=== PATIENT | male | born 1945 | race Caucasian/White ===

== ENCOUNTER 2016-12-22 10:24 | Emergency (ER) ==
[2016-12-22] MEDS ORDERED: MORPHINE 2 MG/ML SYRINGE IVP STA (10:27)
[2016-12-22] MEDS ORDERED: ZOFRAN 4 MG/2 ML IVP STA (10:27)
[2016-12-22] MEDS ORDERED: ASPIRIN CHEWABLE PO STA (10:27)
[2016-12-22 10:35] LABS: BASOPHILS % (AUTO) 0.3 % (0.0-3.0); EOSINOPHILS # (AUTO) 0.1 K/ul (0.0-0.7); HEMATOCRIT 45.6 % (42.0-52.0); HEMOGLOBIN 15.6 g/dl (14.0-18.0); IMMATURE GRANULOCYTE % (AUTO) 0.5 % (0.0-5.0); LYMPHOCYTES # (AUTO) 1.7 K/uL (0.60-3.4); LYMPHOCYTES % (AUTO) 12.7 (10.0-50.0); MEAN CORPUSCULAR HEMOGLOBIN 32.8 pg (27.0-31.0); MEAN CORPUSCULAR HGB CONC 34.2 (31.8-35.4); MEAN CORPUSCULAR VOLUME 95.8 fl (80.0-94.0); MONOCYTES # (AUTO) 0.8 K/uL (0.4-2.0); NEUTROPHILS # (AUTO) 10.8 K/ul (2.0-6.9); NEUTROPHILS % (AUTO) 79.5; PLATELET COUNT 226 10^3/uL (140-440); RED BLOOD COUNT 4.76 10^6/ul (4.70-6.10); WHITE BLOOD COUNT 13.63 K/ul (4.2-10.2)
[2016-12-22 10:42] VITALS: BP 175/91; TEMP 98.9; BMI 25.9
--- NOTE | 2016-12-22 10:46 | ED.PDOC ---
General ED Provider: Dr. HUEY MALLOY Chief Complaint: Chest Pain Stated Complaint: Been hurting in the middle of the chest, has some shortness of breath. pain radiates to throat, not getting better,. patient also has some sinus drainage, coughing. Time Seen by Physician: 10:44 Mode of Arrival: Walk-In Information Source: Patient Primary Care Provider: SHERIF POLLACK Nursing and Triage Documentation Reviewed and Agree: Yes Cardiovascular Complaint Exam - Chest Pain Complaint/Exam Onset: Gradual Symptoms Are: Still present Timing: Constant Initial Severity: Moderate Current Severity: Moderate Location: Reports: Midsternal Pain Radiates: Reports: Jaw Character: Reports: Aching, Tightness Aggravating: Reports: None Alleviating: Reports: None Associated Signs and Symptoms: Reports: Diaphoresis, Cough, Short of air. Denies: Nausea, Vomiting, Fever, Palpitations, Hemoptysis, Back pain, Abdominal pain, Dizziness, Calf pain, Calf swelling Related History: Reports: Similar episode Related Surgical History: Reports: None History of Healthcare-Acquired Pneumonia: Reports: No AMI/ACS Risk Factors: Reports: Hypertension TAD Risk Factors: Reports: None Pulmonary Embolism Risk Factors: Reports: None Prior Care for this Complaint: No Recent Stress Test: No Recent Echo/LV Function: No JVD Present: No Subcutaneous Emphysema Present: No Diminshed Breath Sounds: No Reproducible Chest Wall Pain: No Bilateral Pulses Present: No Unequal Pulses Noted: No If Risk Factors for AMI/ACS Consider: EKG, Cardiac Enzymes, Serial Studies, Oxygen, Aspirin Differential Diagnoses: ACS, Stable Angina Quality Indicators For Acute PA or Cardiac Chest Pain: EKG in 10min., ASA if indicated Review of Systems - Review Of Systems Constitutional: Reports: No symptoms Eyes: Reports: No symptoms Ears, Nose, Mouth, Throat: Reports: Nose discharge Respiratory: Reports: Cough Cardiac: Reports: Chest pain GI: Reports: No symptoms : Reports: No symptoms Musculoskeletal: Reports: No symptoms Skin: Reports: No symptoms Neurological: Reports: No symptoms Endocrine: Reports: No symptoms Hematologic/Lymphatic: Reports: No symptoms All Other Systems: Reviewed and Negative Past Medical History - Past Medical History Previously Healthy: Yes Endocrine: Reports: Dyslipidemia Cardiovascular: Reports: Hypertension Respiratory: Reports: None Hematological: Reports: None Gastrointestinal: Reports: None Genitourinary: Reports: None Neuro/Psych: Reports: None Musculoskeletal: Reports: None Cancer: Reports: None - Surgical History General Surgical History: Reports: Other (CE[facility] DR BARAJAS) - Family History Family History: Reports: None - Social History Smoking Status: Current every day smoker, Light tobacco smoker Hx Substance Use: No Alcohol Screening: Heavy Physical Exam - Physical Exam Appearance: Ill-appearing, Well-nourished Eyes: EOMI ENT: Ears normal, Nose normal, Oropharynx normal Respiratory: Crackles Cardiovascular: RRR, Pulses normal, No rub, No murmur GI/: Soft, Nontender, No masses, Bowel sounds normal, No Organomegaly Musculoskeletal: Normal strength, ROM intact, No edema, No calf tenderness Skin: Warm, Dry, Normal color Neurological: Sensation intact, Motor intact, Reflexes intact, Cranial nerves intact, Alert, Oriented Psychiatric: Affect appropriate, Mood appropriate Physician Notification - Case Discussed Time of Notification: 10:51 (Dr Rayshawn Thornton er.) Critical Care Note - Critical Care Note Total Time (mins): 30 Course - Course Hematology/Chemistry: 12/22/16 10:30 Orders, Labs, Meds: Lab Review 12/22/16 10:30 WBC 13.63 H RBC 4.76 Hgb 15.6 Hct 45.6 MCV 95.8 H MCH 32.8 H MCHC 34.2 RDW Coeff of Carlos 14.0 Plt Count 226 Immature Gran % (Auto) 0.5 Neut % (Auto) 79.5 Lymph % (Auto) 12.7 Johnston % (Auto) 6.0 Eos % (Auto) 1.0 Baso % (Auto) 0.3 Immature Gran # (Auto) 0.1 Neut # 10.8 H Lymph # 1.7 Johnston # 0.8 Eos # 0.1 Baso # 0.0 Orders Category Date Time Status EKG-(ED ONLY) Stat CARDIO 12/22/16 10:27 Ordered ED IV/MEDIPORT/POWERPORT .ONCE EMERGENCY 12/22/16 10:27 Active B-TYPE NATRIURETIC PEPTIDE Stat LAB 12/22/16 10:30 Received CBC W/ AUTO DIFF Stat LAB 12/22/16 10:30 Completed COMPREHENSIVE METABOLIC PANEL Stat LAB 12/22/16 10:30 Received CREATINE KINASE Stat LAB 12/22/16 10:30 Received D-DIMER Stat LAB 12/22/16 10:30 Received TROPONIN I Stat LAB 12/22/16 10:30 Received 0.9 % Sodium Chloride [Saline Flush] MEDS 12/22/16 10:27 Active 1 syr IVF PRN PRN Aspirin [Aspirin Chewable] MEDS 12/22/16 10:27 Discontinued 324 mg PO ONCE STA Morphine Sulfate [Morphine 2 mg/ml Syringe] MEDS 12/22/16 10:27 Discontinued 2 mg IVP ONCE STA Ondansetron HCl/Pf [Zofran 4 mg/2 ml] MEDS 12/22/16 10:27 Discontinued 4 mg IVP ONCE STA CHEST, 1V AP ONLY Stat RADS 12/22/16 10:27 Taken Medications Generic Name Dose Route Start Last Admin Trade Name Freq PRN Reason Stop Dose Admin Sodium Chloride 1 syr 12/22/16 10:27 Saline Flush IVF PRN PRN To flush IV Discontinued Medications Generic Name Dose Route Start Last Admin Trade Name Freq PRN Reason Stop Dose Admin Aspirin 324 mg 12/22/16 10:27 Aspirin Chewable PO 12/22/16 10:28 ONCE STA Morphine Sulfate 2 mg 12/22/16 10:27 Morphine 2 Mg/Ml Syringe IVP 12/22/16 10:28 ONCE STA Ondansetron HCl 4 mg 12/22/16 10:27 Zofran 4 Mg/2 Ml IVP 12/22/16 10:28 ONCE STA Vital Signs: Temp Pulse Resp BP Pulse Ox 12/22/16 10:25 98.9 F 51 L 20 175/91 H 100 ARELI Risk Score ARELI Risk Score: Risk Score Odds of by 30D 0 0.1 (0.1-0.2) 1 0.3 (0.2-0.3) 2 0.4 (0.3-0.5) 3 0.7 (0.6-0.9) 4 1.2 (1.0-1.5) 5 2.2 (1.9-2.6) 6 3.0 (2.5-3.6) 7 4.8 (3.8-6.1) Departure - Departure Time of Disposition: 10:51 Disposition: HOME SELF-CARE Discharge Problem: Chest pain Instructions: Chest Pain (ED) Condition: Good Pt referred to PMD for follow-up: Yes Allergies/Adverse Reactions: Allergies No Known Allergies Allergy (Unverified 12/22/16 10:36) Disposition Discussed With: Patient, Family
[2016-12-22 11:30] LABS: POTASSIUM 4.3 mmol/L (3.5-5.1)
[2016-12-22 11:31] LABS: ANION GAP 15.3; BILIRUBIN,TOTAL 1.11 mg/dL (0.00-1.20); BUN/CREATININE RATIO 10.41; CALCIUM 9.7 mg/dL (8.2-10.2); CREATININE 0.96 mg/dL (0.60-1.10)
[2016-12-22 11:32] LABS: ALBUMIN 4.2 g/dL (3.4-5.0); ALBUMIN/GLOBULIN RATIO 1.2; TOTAL PROTEIN 7.7 g/dL (5.8-8.1); TROPONIN I 0.526 ng/ml (0.0000-0.4000)
[2016-12-22 11:33] LABS: CREATINE KINASE MB 12.4 ng/ml (0.0-3.6)
--- NOTE | 2016-12-22 11:48 | DI ---
EXAM: Single frontal view of the chest HISTORY: Chest pain. COMPARISON: Chest x-ray 05/03/2008 FINDINGS: Cardiomediastinal silhouette is unremarkable. There is no pneumothorax or pleural effusion . There is no consolidation, nodule or mass. The osseous structures are unremarkable. Calcified gr anulomas are present. IMPRESSION: No acute cardiopulmonary process.
== END 2016-12-22 11:10 | disposition home or self-care (01) ==
LOC: ED 10:24
DX: R07.9 Chest pain, unspecified (principal); R06.02 Shortness of breath; I10 Essential (primary) hypertension; E78.5 Hyperlipidemia, unspecified; F17.210 Nicotine dependence, cigarettes, uncomplicated
CPT/HCPCS: 36415; 80053; 82550; 82553; 83880; 84484; 85025; 85379; 93005; 93010; 96374; 96375; 99285

== ENCOUNTER 2017-02-13 09:40 | Outpatient (RCR) ==
[2017-02-13 11:27] VITALS: TEMP 98.1; BMI 25.6
[2017-02-27 11:05] VITALS: BP 132/64
== END 2017-02-28 ==
LOC: CAR 09:40
PROVIDERS: ATTEND Internal Medicine
DX: Z95.1 Presence of aortocoronary bypass graft (principal)
CPT/HCPCS: 93798

== ENCOUNTER 2017-03-01 06:33 | Outpatient (RCR) ==
[2017-03-29 10:53] VITALS: BP 118/52
== END 2017-03-31 ==
LOC: CAR.REHAB 06:33
PROVIDERS: ATTEND Internal Medicine
DX: Z95.1 Presence of aortocoronary bypass graft (principal)
CPT/HCPCS: 93798

== ENCOUNTER 2017-04-02 07:54 | Outpatient (RCR) | payer OTHER ==
[2017-05-01 10:57] VITALS: BP 118/54
== END 2017-05-01 ==
LOC: CAR.REHAB 07:54
PROVIDERS: ATTEND Internal Medicine
DX: Z95.1 Presence of aortocoronary bypass graft (principal)
CPT/HCPCS: 93798

== ENCOUNTER 2017-05-02 07:20 | Outpatient (RCR) | payer OTHER ==
[2017-05-27 10:56] VITALS: BP 130/58
== END 2017-05-29 ==
LOC: CAR.REHAB 07:20
PROVIDERS: ATTEND Internal Medicine
DX: Z95.1 Presence of aortocoronary bypass graft (principal)
CPT/HCPCS: 93798